=== PATIENT | female | born 1970 | race American Indian/Alaskan Native ===

== ENCOUNTER → 2017-03-22 | Emergency (ER) | payer OTHER ==
[~2017-03-22] MED LIST: Albuterol 0.083% Inhal Sol (2.5 mg/3 mL) UD IH STA; Albuterol 0.083% Inhal Sol (2.5 mg/3 mL) UD ONE; Sodium Chloride 0.9% 1,000 ML ONE; Sodium Chloride 0.9% 500 ML IV ONE
[2017-03-22 10:34] VITALS: BMI 25.8
[2017-03-22 10:41] VITALS: BP 152/91; PULSE 86; RESP 20; TEMP 97.7; O2SAT 100
--- NOTE | 2017-03-22 11:21 | C.PDOC ---
History Of Present Illness 46 y/o female pmhx HTN, diabetes presents to ED for evaluation of epigastric pain and left sided chest pain with associated SOB yesterday. episode lasted a few minutes, self limited. Pt reports there "is a very strong smell in her entire building from a neighbor who smokes PCP... not sure if related to my symptoms." Pt currently asymptomatic. Otherwise, pt denies fever, chills, denies worse headache of life, visual changes, focal deficits, vomiting, dyspnea , wheezing, cough, abd. pain, diarrhea, denies any other active complaints. Time Seen by Provider: 03/22/17 10:55 Chief Complaint (Nursing): Chest Pain History Per: Patient History/Exam Limitations: no limitations Onset/Duration Of Symptoms: Mins Current Symptoms Are (Timing): Gone Severity: Moderate Modifying Factors: None Recent travel outside of the [place]: No Past Medical History Reviewed: Historical Data, Nursing Documentation, Vital Signs Vital Signs: Last Vital Signs Temp 97.7 F 03/22/17 10:39 Pulse 86 03/22/17 10:39 Resp 20 03/22/17 10:39 BP 152/91 H 03/22/17 10:39 Pulse Ox 100 03/22/17 12:43 - Medical History PMH: Diabetes, HTN, Hypercholesterolemia, Hyperthyroidism - [facility] Procedures HEAD SOFT TISS X-RAY NEC (01/19/13) INJECT/INFUSE ELECTROLYT (05/09/12) PERCUTAN NEEDLE BX OF THYROID GLAND (01/19/13) Family History: States: [place], Diabetes, Hypertension - Social History Hx Tobacco Use: No Hx Alcohol Use: No Hx Substance Use: No - Immunization History Hx Tetanus Toxoid Vaccination: No Hx Influenza Vaccination: No Hx Pneumococcal Vaccination: No Review Of Systems Except As Marked, All Systems Reviewed And Found Negative. Constitutional: Negative for: Fever, Chills Cardiovascular: Negative for: Chest Pain Respiratory: Negative for: Cough, Shortness of Breath Gastrointestinal: Negative for: Nausea, Vomiting, Abdominal Pain Neurological: Negative for: Headache, Dizziness Physical Exam - Physical Exam Appears: Non-toxic, No Acute Distress Skin: Warm, Dry, No Rash Eye(s): bilateral: PERRL Nose: No Flaring Oral Mucosa: Moist Tongue: Normal Appearing, No Swelling Lips: Normal Appearing, No Swelling Throat: No Erythema, No Drooling Neck: Supple, Other ((-) carotid bruits) Chest: Symmetrical, No Tenderness Cardiovascular: Rhythm Regular, No Friction Rub, No Murmur, No JVD Respiratory: No Decreased Breath Sounds, No Accessory Muscle Use, No Rales, No Rhonchi, No Stridor, No Wheezing Gastrointestinal/Abdominal: Soft, No Tenderness, No Distention, No Guarding Back: No CVA Tenderness Extremity: No Pedal Edema Extremity: Bilateral: Atraumatic Neurological/Psych: Oriented x3, Normal Speech, Normal Cognition ED Course And Treatment - Laboratory Results Result Diagrams: 03/22/17 11:36 03/22/17 11:36 Lab Interpretation: Abnormal ECG: Interpreted By Me, Viewed By Me ECG Rhythm: Sinus Rhythm Interpretation Of ECG: SR@82/min, left axis deviation,no acute T wave or ST-T changes. Rate From EC (BPM) O2 Sat by Pulse Oximetry: 100 (room air) Pulse Ox Interpretation: Normal - Other Rad CXR X-Ray: Read By Radiologist Interpretation: Accession No. : [id number]. Patient Name / ID : RICCI GUILLEN / [id number]. Exam Date : 03/22/2017 11:04:57 ( Approved ). Study Comment : Sex / Age : F / 46Y. Creator : Caitlin Ruiz MD. Dictator : Caitlin Ruiz MD. Flight Service Agent : Body And Frame Man : Caitlin Ruiz MD. Approver2 : Report Date : 03/22/2017 11:42:42. My Comment : . HISTORY: Cough. COMPARISON: Chest x-ray performed 09/27/15. TECHNIQUE: Chest PA and lateral. FINDINGS: Examination limited by habitus. LUNGS: No focal consolidation. Please note that chest x-ray has limited sensitivity for the detection of pulmonary masses. PLEURA: No significant pleural effusion identified. No definite pneumothorax . CARDIOVASCULAR: Heart size appears within normal limits. Ectatic aorta. OSSEOUS STRUCTURES: Mild degenerative changes. VISUALIZED UPPER ABDOMEN: Unremarkable. OTHER FINDINGS: None. IMPRESSION: No focal consolidation, significant pleural effusion, or definite pneumothorax identified. Progress Note: Plan: EKG, labs, CXR, IV fluids, nebulizer, UA. At 12:42, pt sts , " unable to stay no more and need to leave to move my car". results review with pateint and appears abnormal: hyperglycemia, await for D-Dimer results. Risk of leaving AMA described to patient including complication of known and uknown condition including . Pt has full capacity to make decision and still wish to sign AMA. Pt advised return to Ed at any time to complete evaluation. return to Ed at any time if any worsening ro new changes. 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 - Scribe Statement The provider has reviewed the documentation as recorded by the Scribbetty Zamora All medical record entries made by the James were at my direction and personally dictated by me. I have reviewed the chart and agree that the record accurately reflects my personal performance of the history, physical exam, medical decision making, and the department course for this patient. I have also personally directed, reviewed, and agree with the discharge instructions and disposition.
[2017-03-22 11:42] LABS: BASO % 0.9 % (0.0-2.0); EOS % 0.4 % (0.0-4.0); HEMOGLOBIN 13.6 g/dL (11.0-16.0); LYMPH # 1.8 K/uL (1.0-4.3); LYMPH % 35.9 % (20.0-40.0); MEAN CELL VOLUME 87.2 fL (81.0-99.0); MEAN CORPUSCULAR HEMOGLOBIN 28.8 pg (27.0-31.0); MEAN PLATELET VOLUME 9.3 fL (7.2-11.7); MONO # 0.3 K/uL (0.0-0.8); MONO % 5.9 % (0.0-10.0); NEUT # 2.8 K/uL (1.8-7.0); NEUT % 56.9 % (50.0-75.0); NRBC % 0.1 % (0.0-2.0); RBC 4.74 Mil/uL (3.80-5.20); RED CELL DISTRIBUTION WIDTH 13.3 % (11.5-14.5); WHITE BLOOD COUNT 4.9 K/uL (4.8-10.8)
--- NOTE | 2017-03-22 11:44 | RAD ---
HISTORY: Cough COMPARISON: Chest x-ray performed 09/27/15 TECHNIQUE: Chest PA and lateral FINDINGS: Examination limited by habitus. LUNGS: No focal consolidation. Please note that chest x-ray has limited sensitivity for the detection of pulmonary masses. PLEURA: No significant pleural effusion identified. No definite pneumothorax . CARDIOVASCULAR: Heart size appears within normal limits. Ectatic aorta. OSSEOUS STRUCTURES: Mild degenerative changes. VISUALIZED UPPER ABDOMEN: Unremarkable. OTHER FINDINGS: None. IMPRESSION: No focal consolidation, significant pleural effusion, or definite pneumothorax identified.
[2017-03-22 11:54] LABS: GFR AFRICAN-AMERICAN > 60; GFR NON-AFRICAN AMERICAN > 60
[2017-03-22 11:55] LABS: BLOOD UREA NITROGEN 13 mg/dL (7-17); CALCIUM 8.9 mg/dl (8.6-10.4)
--- NOTE | 2017-03-23 18:47 | CARD ---
APPROVED REPORT EKG Measurement Heart [id number] [id number] <Conclusion> Normal sinus rhythm Poor R wave progression. It appears positional
== END | disposition left against medical advice (07) ==
LOC: C.ER 10:33
DX: R07.9 Chest pain, unspecified (principal); E11.65 Type 2 diabetes mellitus with hyperglycemia
CPT/HCPCS: 71020; 80048; 84484; 85025; 93005; 94640; 99283; J7040